=== PATIENT | female | born 1985 | race Caucasian/White ===

== ENCOUNTER 2020-06-27 09:25 | Emergency (ER) | payer MEDICAID ==
[~2020-06-27] VITALS: Ht 160 cm; Wt 150.0 kg
[2020-06-27] MEDS ORDERED: ONDANSETRON HCL 4MG/2ML INJ IV STA (09:44)
[2020-06-27] MEDS ORDERED: ACETAMINOPHEN 325MG TABLET PO STA (09:44)
[2020-06-27] MEDS ORDERED: MORPHINE SULFATE 4 MG/ML CPJ (NOT FOR IM USE) IV STA (09:44)
[2020-06-27 10:22] LABS: HEMATOCRIT. 47.5 % (36.0-48.0); HEMOGLOBIN. 16.2 g/dL (12.0-16.0); MEAN CORPUSCULAR HEMOGLOBIN 31.4 pg (28.0-32.0); MEAN CORPUSCULAR VOLUME 91.8 fL (81.0-99.0); PLATELET 308 x1000/uL (130-400); RED BLOOD CELL COUNT 5.17 mill/uL (4.2-5.4); RED CELL DISTRIBUTION WIDTH 12.5 % (11.6-14.6)
[2020-06-27 10:31] LABS: INR 1.1
[2020-06-27 10:32] LABS: CHLORIDE 99 mEq/L (98-107)
[2020-06-27 10:37] LABS: ETHANOL BLOOD < 10 mg/dL
[2020-06-27 10:44] LABS: HCG SCREEN NEGATIVE
[2020-06-27] MEDS ORDERED: POTASSIUM CHLORIDE 20MEQ TABLET SR PO ONE (11:00)
[2020-06-27 12:41] LABS: CLARITY URINE TURBID (CLEAR); COLOR URINE DARK YELLOW (YELLOW); KETONES URINE TRACE (NEGATIVE); LEUKOCYTE ESTERASE URINE 2+ (NEGATIVE); NITRITE URINE POSITIVE (NEGATIVE); OCCULT BLOOD URINE 3+ (NEGATIVE); PROTEIN URINE 2+ (NEGATIVE); SPECIFIC GRAVITY URINE 1.019 (1.005-1.030)
[2020-06-27 12:52] LABS: *AMPHETAMINES SCREEN URINE NEGATIVE (NEGATIVE); *BARBITURATES SCREEN URINE NEGATIVE (NEGATIVE); *BENZODIAZEPINES SCREEN URINE NEGATIVE (NEGATIVE); *COCAINE SCREEN URINE NEGATIVE (NEGATIVE); METHADONE URINE SCREEN NEGATIVE (NEGATIVE)
[2020-06-27 12:53] LABS: OPIATES URINE SCREEN NEGATIVE (NEGATIVE); PHENCYCLIDINE URINE SCREEN NEGATIVE (NEGATIVE)
[2020-06-27 12:54] LABS: CANNABINOID URINE SCREEN PRESUMTIVE POSITIVE (NEGATIVE)
[2020-06-27 13:37] VITALS: BP 158/88
[2020-06-27 14:12] LABS: PLATELET ESTIMATE NORMAL
== END 2020-06-27 13:39 | disposition home or self-care (01) ==
LOC: ER 09:25
DX: N39.0 Urinary tract infection, site not specified (principal); J45.909 Unspecified asthma, uncomplicated; F19.10 Other psychoactive substance abuse, uncomplicated; F15.10 Other stimulant abuse, uncomplicated; Z98.890 Other specified postprocedural states
CPT/HCPCS: 36415; 71045; 80053; 80305; 80320; 81003; 81025; 82962; 83605; 83880; 84145; 84484; 84703; 85025; 85610; 87040; 87077; 87086; 87186; 93005; 96374; 96375; 99285; J2270; J2405; G0480

== ENCOUNTER 2020-08-29 16:28 | Inpatient (IN) | payer MEDICAID ==
[~2020-08-29] VITALS: Ht 165.1 cm; Wt 144.7 kg
[2020-08-29] MEDS ORDERED: ONDANSETRON HCL 4MG/2ML INJ IV STA (16:54)
[2020-08-29] MEDS ORDERED: MORPHINE SULFATE 4 MG/ML CPJ (NOT FOR IM USE) IV STA (16:54)
[2020-08-29] MEDS ORDERED: SODIUM CHLORIDE 0.9% 1,000 ML IV ONE ×2 (17:00→21:15)
[2020-08-29] MEDS ORDERED: PIPERACILLIN/TAZ 3.375G PREMIX 50 ML IV ONE (17:00)
[2020-08-29] MEDS ORDERED: AZITHROMYCIN 500 MG in DEXT 5% WATER 250 ML IV ONE (17:00)
[2020-08-29 17:26] LABS: HEMATOCRIT. 50.1 % (36.0-48.0); HEMOGLOBIN. 16.8 g/dL (12.0-16.0); MEAN CORPUSCULAR HEMOGLOBIN 30.6 pg (28.0-32.0); MEAN CORPUSCULAR VOLUME 91.4 fL (81.0-99.0); PLATELET 238 x1000/uL (130-400); RED BLOOD CELL COUNT 5.48 mill/uL (4.2-5.4); RED CELL DISTRIBUTION WIDTH 13.9 % (11.6-14.6)
[2020-08-29 17:34] LABS: INR 1.5; PROTHROMBIN TIME 15.1 sec (9.6-11.0)
[2020-08-29 17:47] LABS: HCG SCREEN NEGATIVE
[2020-08-29 17:55] LABS: CHLORIDE 94 mEq/L (98-107)
[2020-08-29 17:59] LABS: ETHANOL BLOOD < 10 mg/dL
[2020-08-29 18:28] LABS: PLATELET ESTIMATE NORMAL
[2020-08-29] MEDS ORDERED: KETOROLAC 30MG/ML VIAL IV SCH (18:45)
[2020-08-29 18:56] LABS: CLARITY URINE TURBID (CLEAR); COLOR URINE DARK YELLOW (YELLOW); KETONES URINE TRACE (NEGATIVE); LEUKOCYTE ESTERASE URINE TRACE (NEGATIVE); NITRITE URINE POSITIVE (NEGATIVE); OCCULT BLOOD URINE TRACE (NEGATIVE); PROTEIN URINE 2+ (NEGATIVE); SPECIFIC GRAVITY URINE 1.029 (1.005-1.030)
[2020-08-29] MEDS ORDERED: VANCOMYCIN 1 G PREMIX 200 ML IV NR (19:00)
[2020-08-29 19:24] LABS: *BARBITURATES SCREEN URINE NEGATIVE (NEGATIVE); *COCAINE SCREEN URINE NEGATIVE (NEGATIVE)
[2020-08-29 19:25] LABS: *BENZODIAZEPINES SCREEN URINE NEGATIVE (NEGATIVE); METHADONE URINE SCREEN NEGATIVE (NEGATIVE); OPIATES URINE SCREEN NEGATIVE (NEGATIVE); PHENCYCLIDINE URINE SCREEN NEGATIVE (NEGATIVE)
[2020-08-29 19:28] LABS: *AMPHETAMINES SCREEN URINE PRESUMTIVE POSITIVE (NEGATIVE); CANNABINOID URINE SCREEN PRESUMTIVE POSITIVE (NEGATIVE)
[2020-08-29] MEDS: AZTREONAM 2 GM in DEXT 5% WATER 100 ML IV SCH (21:52)
[2020-08-29] MEDS ORDERED: NA PHOS,M-B/NA PHOS,DI-BA ENEMA 118ML PR PRN (23:00)
[2020-08-29] MEDS ORDERED: DIPHENHYDRAMINE 50MG/ML VIAL IV PRN (23:00)
[2020-08-29] MEDS ORDERED: LORAZEPAM 2MG/ML CPJ IV PRN (23:00)
[2020-08-29] MEDS ORDERED: HYDRALAZINE 20MG/ML VIAL IV PRN (23:00)
[2020-08-29] MEDS ORDERED: CLONIDINE 0.1MG TABLET PO PRN (23:00)
[2020-08-29] MEDS ORDERED: DOCUSATE SODIUM 100MG CAPSULE PO PRN (23:00)
[2020-08-29] MEDS ORDERED: MAGNESIUM/ALUMINUM HYDROXIDE/SIMETHICONE 30ML UDC PO PRN (23:00)
[2020-08-29] MEDS ORDERED: IPRATROPIUM/ALBUTEROL 0.5-3(2.5)MG/3ML NEB NEB PRN (23:00)
[2020-08-29] MEDS ORDERED: GUAIFENESIN 200MG/10ML SUGAR FREE UDC PO PRN (23:00)
[2020-08-30] MEDS: DEXT 5%/0.45% NACL 1000ML 1,000 ML IV SCH ×2 (02:11→18:14)
[2020-08-30] MEDS: PANTOPRAZOLE SODIUM 40 MG/VIAL IV SCH ×2 (02:11→10:01)
[2020-08-30 04:12] VITALS: BP 101/59
[2020-08-30] MEDS: SODIUM CHLORIDE 0.9% INJ 3ML FLUSH IVF SCH ×3 (05:46→21:31)
[2020-08-30 07:49] LABS: HEMATOCRIT. 46.2 % (36.0-48.0); HEMOGLOBIN. 15.3 g/dL (12.0-16.0); MEAN CORPUSCULAR HEMOGLOBIN 31.1 pg (28.0-32.0); MEAN CORPUSCULAR VOLUME 93.8 fL (81.0-99.0); MEAN PLATELET VOLUME 9.4 fl (7.4-10.4); PLATELET 167 x1000/uL (130-400); RED BLOOD CELL COUNT 4.93 mill/uL (4.2-5.4)
[2020-08-30 07:57] LABS: CHLORIDE 102 mEq/L (98-107)
[2020-08-30 08:06] LABS: CREATINE KINASE MB FRACTION 14.1 ng/mL (0.5-3.6)
[2020-08-30] MEDS: AZTREONAM 2 GM in DEXT 5% WATER 100 ML IV SCH (10:00)
[2020-08-30] MEDS: ENOXAPARIN 40MG/0.4ML SYR SUBCUT SCH (10:01)
[2020-08-30 11:55] LABS: CREATINE KINASE 5614 IU/L (26-192)
[2020-08-30 15:01] LABS: PLATELET ESTIMATE NORMAL
[2020-08-30 16:00] VITALS: BP 114/69
[2020-08-30] MEDS ORDERED: LEVOFLOXACIN 500MG PREMIX 100 ML IV SCH (16:00)
[2020-08-30 17:01] LABS: CREATINE KINASE MB FRACTION 9.6 ng/mL (0.5-3.6)
[2020-08-30 17:26] LABS: CREATINE KINASE 4139 IU/L (26-192)
[2020-08-30] MEDS: METRONIDAZOLE 500 MG PREMIX 100 ML IV SCH ×2 (18:14→21:30)
[2020-08-30 20:00] VITALS: BP 106/46
[2020-08-31] VITALS: BP 96/56
[2020-08-31 04:00] VITALS: BP 107/52
[2020-08-31] MEDS: METRONIDAZOLE 500 MG PREMIX 100 ML IV SCH ×3 (05:50→21:36)
[2020-08-31] MEDS: SODIUM CHLORIDE 0.9% INJ 3ML FLUSH IVF SCH ×3 (05:51→21:36)
[2020-08-31 06:37] LABS: BASOPHILS % 0.3 % (0.0-2.0); EOSINOPHILS % 1.5 % (0.0-5.0); HEMATOCRIT. 39.5 % (36.0-48.0); HEMOGLOBIN. 13.7 g/dL (12.0-16.0); LYMPHOCYTES % 8.5 % (20.0-50.0); MEAN CORPUSCULAR HEMOGLOBIN 31.7 pg (28.0-32.0); MEAN CORPUSCULAR VOLUME 91.5 fL (81.0-99.0); MONOCYTES % 5.4 % (2.0-8.0); NEUTROPHILS % 84.3 % (40.0-76.0); PLATELET 124 x1000/uL (130-400); RED BLOOD CELL COUNT 4.32 mill/uL (4.2-5.4)
[2020-08-31 06:54] LABS: CHLORIDE 104 mEq/L (98-107)
[2020-08-31 08:00] VITALS: BP 108/88
[2020-08-31] MEDS: ENOXAPARIN 40MG/0.4ML SYR SUBCUT SCH (09:00)
[2020-08-31] MEDS: PANTOPRAZOLE SODIUM 40 MG/VIAL IV SCH (09:02)
[2020-08-31] MEDS: DEXT 5%/0.45% NACL 1000ML 1,000 ML IV SCH ×2 (09:05→18:42)
[2020-08-31] MEDS: LEVOFLOXACIN 250MG PREMIX 50 ML IV SCH (14:24)
[2020-08-31] MEDS: KETOROLAC 30MG/ML VIAL IV PRN (14:40)
[2020-08-31 16:00] VITALS: BP 110/65
[2020-08-31] MEDS ORDERED: SIMETHICONE 40 MG/0.6 ML 30ML PO SCH (18:20)
[2020-08-31] MEDS: SIMETHICONE 80MG TABLET CHEW PO SCH ×2 (18:41→21:36)
[2020-08-31 20:00] VITALS: BP 115/32
[2020-08-31] MEDS: ACETAMINOPHEN 325MG TABLET PO PRN (21:36)
[2020-09-01] VITALS: BP 114/63
[2020-09-01 04:00] VITALS: BP 101/64
[2020-09-01] MEDS: DEXT 5%/0.45% NACL 1000ML 1,000 ML IV SCH ×2 (06:00→14:55)
[2020-09-01] MEDS: METRONIDAZOLE 500 MG PREMIX 100 ML IV SCH ×3 (06:00→21:44)
[2020-09-01] MEDS: SODIUM CHLORIDE 0.9% INJ 3ML FLUSH IVF SCH ×3 (06:00→21:55)
[2020-09-01 06:55] LABS: BASOPHILS % 0.2 % (0.0-2.0); EOSINOPHILS % 0.2 % (0.0-5.0); HEMATOCRIT. 38.2 % (36.0-48.0); LYMPHOCYTES % 16.5 % (20.0-50.0); MEAN CORPUSCULAR HEMOGLOBIN 31.9 pg (28.0-32.0); MEAN CORPUSCULAR VOLUME 93.8 fL (81.0-99.0); MEAN PLATELET VOLUME 10.4 fl (7.4-10.4); MONOCYTES % 8.4 % (2.0-8.0); NEUTROPHILS % 74.7 % (40.0-76.0); PLATELET 122 x1000/uL (130-400); RED BLOOD CELL COUNT 4.07 mill/uL (4.2-5.4); RED CELL DISTRIBUTION WIDTH 14.1 % (11.6-14.6)
[2020-09-01 07:18] LABS: CHLORIDE 103 mEq/L (98-107)
[2020-09-01 08:30] VITALS: BP 95/55
[2020-09-01] MEDS: PANTOPRAZOLE SODIUM 40 MG/VIAL IV SCH (08:40)
[2020-09-01] MEDS: ONDANSETRON HCL 4MG/2ML INJ IV PRN ×2 (08:42→18:06)
[2020-09-01] MEDS: KETOROLAC 30MG/ML VIAL IV PRN ×2 (08:42→18:06)
[2020-09-01] MEDS: SIMETHICONE 80MG TABLET CHEW PO SCH ×4 (08:42→21:44)
[2020-09-01] MEDS: ENOXAPARIN 40MG/0.4ML SYR SUBCUT SCH (08:42)
[2020-09-01 12:00] VITALS: BP 104/54
[2020-09-01] MEDS: LEVOFLOXACIN 250MG PREMIX 50 ML IV SCH (13:54)
[2020-09-01 16:00] VITALS: BP 109/67
[2020-09-01] MEDS ORDERED: LOPERAMIDE HCL 2MG CAPSULE PO PRN (17:00)
[2020-09-01] MEDS ORDERED: LOPERAMIDE HCL 2MG CAPSULE PO NR (17:00)
[2020-09-01 20:00] VITALS: BP 99/54
[2020-09-02] VITALS: BP 110/67
[2020-09-02 04:00] VITALS: BP 96/62
[2020-09-02] MEDS: SODIUM CHLORIDE 0.9% INJ 3ML FLUSH IVF SCH ×3 (06:21→21:32)
[2020-09-02] MEDS: DEXT 5%/0.45% NACL 1000ML 1,000 ML IV SCH ×3 (06:21→21:31)
[2020-09-02] MEDS: METRONIDAZOLE 500 MG PREMIX 100 ML IV SCH ×3 (06:21→21:31)
[2020-09-02] MEDS: SIMETHICONE 80MG TABLET CHEW PO SCH ×4 (08:56→21:31)
[2020-09-02] MEDS: ENOXAPARIN 40MG/0.4ML SYR SUBCUT SCH (08:57)
[2020-09-02] MEDS: PANTOPRAZOLE SODIUM 40 MG/VIAL IV SCH (08:57)
[2020-09-02 12:46] VITALS: BP 89/47
[2020-09-02 12:50] VITALS: BP 117/58
[2020-09-02] MEDS ORDERED: LEVOFLOXACIN 500MG PREMIX 100 ML IV SCH (14:00)
[2020-09-02 16:27] VITALS: BP 99/56
[2020-09-02] MEDS: ONDANSETRON HCL 4MG/2ML INJ IV PRN (18:18)
[2020-09-02 20:00] VITALS: BP 126/57
[2020-09-03] VITALS: BP 141/73
[2020-09-03 04:00] VITALS: BP 119/60
[2020-09-03] MEDS: METRONIDAZOLE 500 MG PREMIX 100 ML IV SCH ×3 (06:23→21:04)
[2020-09-03] MEDS: SODIUM CHLORIDE 0.9% INJ 3ML FLUSH IVF SCH ×3 (06:23→21:05)
[2020-09-03 08:16] VITALS: BP 112/49
[2020-09-03] MEDS: PANTOPRAZOLE SODIUM 40 MG/VIAL IV SCH (08:30)
[2020-09-03] MEDS: SIMETHICONE 80MG TABLET CHEW PO SCH ×4 (08:30→21:03)
[2020-09-03] MEDS: ENOXAPARIN 40MG/0.4ML SYR SUBCUT SCH (08:30)
[2020-09-03 12:10] VITALS: BP 94/48
[2020-09-03] MEDS: ACETAMINOPHEN 325MG TABLET PO PRN (12:45)
[2020-09-03] MEDS ORDERED: LEVOFLOXACIN 500MG PREMIX 100 ML IV SCH (14:00)
[2020-09-03] MEDS: ONDANSETRON HCL 4MG/2ML INJ IV PRN ×2 (17:05→21:17)
[2020-09-03] MEDS: DEXT 5%/0.45% NACL 1000ML 1,000 ML IV SCH (17:05)
[2020-09-03 20:00] VITALS: BP 112/60
[2020-09-04] VITALS: BP 116/70
[2020-09-04] MEDS: DEXT 5%/0.45% NACL 1000ML 1,000 ML IV SCH ×3 (03:02→21:12)
[2020-09-04 04:00] VITALS: BP 112/75
[2020-09-04] MEDS: SODIUM CHLORIDE 0.9% INJ 3ML FLUSH IVF SCH ×3 (05:54→22:00)
[2020-09-04] MEDS: METRONIDAZOLE 500 MG PREMIX 100 ML IV SCH (05:54)
[2020-09-04] MEDS: ONDANSETRON HCL 4MG/2ML INJ IV PRN (06:13)
[2020-09-04] MEDS: SIMETHICONE 80MG TABLET CHEW PO SCH ×4 (08:20→21:09)
[2020-09-04] MEDS: ENOXAPARIN 40MG/0.4ML SYR SUBCUT SCH (09:00)
[2020-09-04 09:01] VITALS: BP 111/75
[2020-09-04 09:08] LABS: INR 1.3
[2020-09-04] MEDS: PANTOPRAZOLE SODIUM 40 MG/VIAL IV SCH (09:20)
[2020-09-04 12:00] VITALS: BP 130/75
[2020-09-04] MEDS: ACETAMINOPHEN 325MG TABLET PO PRN (14:01)
[2020-09-04 16:00] VITALS: BP 123/80
[2020-09-04] MEDS: METOCLOPRAMIDE HCL 10MG/2ML VIAL IV SCH (17:23)
[2020-09-04 20:42] VITALS: BP 127/75
[2020-09-05] VITALS: BP 103/68
[2020-09-05 04:00] VITALS: BP 128/63
[2020-09-05] MEDS: METOCLOPRAMIDE HCL 10MG/2ML VIAL IV SCH ×6 (06:01→23:22)
[2020-09-05] MEDS: SODIUM CHLORIDE 0.9% INJ 3ML FLUSH IVF SCH ×3 (06:02→22:23)
[2020-09-05 08:00] VITALS: BP 137/84
[2020-09-05] MEDS: SIMETHICONE 80MG TABLET CHEW PO SCH ×4 (08:00→22:22)
[2020-09-05] MEDS: PANTOPRAZOLE SODIUM 40 MG/VIAL IV SCH (08:01)
[2020-09-05] MEDS: DEXT 5%/0.45% NACL 1000ML 1,000 ML IV SCH ×2 (08:02→17:18)
[2020-09-05] MEDS: ENOXAPARIN 40MG/0.4ML SYR SUBCUT SCH ×2 (08:02→22:23)
[2020-09-05 09:31] LABS: BASOPHILS % 0.3 % (0.0-2.0); EOSINOPHILS % 0.6 % (0.0-5.0); HEMATOCRIT. 40.6 % (36.0-48.0); HEMOGLOBIN. 13.5 g/dL (12.0-16.0); LYMPHOCYTES % 13.6 % (20.0-50.0); MEAN CORPUSCULAR HEMOGLOBIN 30.8 pg (28.0-32.0); MEAN CORPUSCULAR VOLUME 92.7 fL (81.0-99.0); MEAN PLATELET VOLUME 8.3 fl (7.4-10.4); MONOCYTES % 8.7 % (2.0-8.0); NEUTROPHILS % 76.8 % (40.0-76.0); PLATELET 336 x1000/uL (130-400); RED BLOOD CELL COUNT 4.38 mill/uL (4.2-5.4); RED CELL DISTRIBUTION WIDTH 14.3 % (11.6-14.6)
[2020-09-05 10:03] LABS: CHLORIDE 104 mEq/L (98-107)
[2020-09-05 12:00] VITALS: BP 125/72
[2020-09-05] MEDS ORDERED: POTASSIUM CHLORIDE 20MEQ TABLET SR PO NR (12:00)
[2020-09-05 16:00] VITALS: BP 122/85
[2020-09-05 20:00] VITALS: BP 121/68
[2020-09-06] VITALS (7 sets, daily range): BP systolic 112–142; BP diastolic 64–92
[2020-09-06] MEDS: DEXT 5%/0.45% NACL 1000ML 1,000 ML IV SCH ×2 (03:00→15:13)
[2020-09-06] MEDS: SODIUM CHLORIDE 0.9% INJ 3ML FLUSH IVF SCH ×3 (06:06→22:00)
[2020-09-06] MEDS: METOCLOPRAMIDE HCL 10MG/2ML VIAL IV SCH ×3 (06:06→17:06)
[2020-09-06 07:00] LABS: CHLORIDE 103 mEq/L (98-107)
[2020-09-06 07:43] LABS: BASOPHILS % 0.4 % (0.0-2.0); EOSINOPHILS % 0.7 % (0.0-5.0); HEMATOCRIT. 38.5 % (36.0-48.0); HEMOGLOBIN. 13.1 g/dL (12.0-16.0); LYMPHOCYTES % 17.1 % (20.0-50.0); MEAN CORPUSCULAR HEMOGLOBIN 31.7 pg (28.0-32.0); MEAN CORPUSCULAR VOLUME 93.6 fL (81.0-99.0); MEAN PLATELET VOLUME 8.6 fl (7.4-10.4); MONOCYTES % 12.2 % (2.0-8.0); NEUTROPHILS % 69.6 % (40.0-76.0); PLATELET 360 x1000/uL (130-400); RED BLOOD CELL COUNT 4.12 mill/uL (4.2-5.4); RED CELL DISTRIBUTION WIDTH 14.3 % (11.6-14.6)
[2020-09-06] MEDS: SIMETHICONE 80MG TABLET CHEW PO SCH ×4 (08:22→21:00)
[2020-09-06] MEDS: PANTOPRAZOLE SODIUM 40 MG/VIAL IV SCH (08:22)
[2020-09-06] MEDS: ENOXAPARIN 40MG/0.4ML SYR SUBCUT SCH (08:22)
[2020-09-06] MEDS ORDERED: EZ-HD SUSPENSION(BARIUM SULFATE 340GM) PO ONE (10:14)
[2020-09-06] MEDS ORDERED: SIMETHICONE/SOD BICARB/CIT AC 1 EACH GRAN.EF.PK ONE (10:15)
[2020-09-06] MEDS ORDERED: IOHEXOL-300 100 ML BOTTLE ONE (16:41)
[2020-09-06] MEDS: ACETAMINOPHEN 325MG TABLET PO PRN (22:13)
[2020-09-07] VITALS (26 sets, daily range): BP systolic 95–138; BP diastolic 41–77
[2020-09-07] MEDS: DEXT 5%/0.45% NACL 1000ML 1,000 ML IV SCH ×3 (04:00→21:45)
[2020-09-07 07:08] LABS: BASOPHILS % 0.4 % (0.0-2.0); EOSINOPHILS % 0.6 % (0.0-5.0); HEMATOCRIT. 39.7 % (36.0-48.0); HEMOGLOBIN. 13.4 g/dL (12.0-16.0); LYMPHOCYTES % 13.9 % (20.0-50.0); MEAN CORPUSCULAR HEMOGLOBIN 31.6 pg (28.0-32.0); MEAN CORPUSCULAR VOLUME 93.3 fL (81.0-99.0); MEAN PLATELET VOLUME 8.2 fl (7.4-10.4); MONOCYTES % 9.9 % (2.0-8.0); NEUTROPHILS % 75.2 % (40.0-76.0); PLATELET 394 x1000/uL (130-400); RED BLOOD CELL COUNT 4.25 mill/uL (4.2-5.4); RED CELL DISTRIBUTION WIDTH 14.6 % (11.6-14.6)
[2020-09-07 07:46] LABS: CHLORIDE 102 mEq/L (98-107)
[2020-09-07] MEDS ORDERED: SODIUM BICARBONATE 4% (2.4MEQ) 5ML VIAL IV ONE (07:47)
[2020-09-07] MEDS ORDERED: FENTANYL CITRATE/PF 50MCG/ML 2ML VIAL ONE (07:47)
[2020-09-07] MEDS ORDERED: LIDOCAINE HCL 1% 20ML VIAL (Pyxis) INJ ONE (07:47)
[2020-09-07] MEDS: PANTOPRAZOLE SODIUM 40 MG/VIAL IV SCH (11:11)
[2020-09-07] MEDS: SIMETHICONE 80MG TABLET CHEW PO SCH ×4 (11:12→21:45)
[2020-09-07] MEDS ORDERED: POTASSIUM CHLORIDE 20MEQ TABLET SR PO NR (12:00)
[2020-09-07] MEDS ORDERED: POTASSIUM CHLORIDE INJ 40 MEQ in DEXT 5% WATER 250 ML IV NR (14:00)
[2020-09-07] MEDS ORDERED: MEROPENEM 1,000 MG in SODIUM CHLORIDE 0.9% 100 ML IV SCH ×2 (18:00→20:00)
[2020-09-07] MEDS: METRONIDAZOLE 500 MG PREMIX 100 ML IV SCH (21:45)
[2020-09-07] MEDS: AZTREONAM 2GM in DEXTROSE 5% WATER 100ML IV SCH (21:45)
[2020-09-07] MEDS: SODIUM CHLORIDE 0.9% INJ 3ML FLUSH IVF SCH (21:46)
[2020-09-08] VITALS: BP 90/50
[2020-09-08 04:00] VITALS: BP 110/65
[2020-09-08] MEDS: SODIUM CHLORIDE 0.9% INJ 3ML FLUSH IVF SCH ×3 (06:06→21:33)
[2020-09-08] MEDS: METOCLOPRAMIDE HCL 10MG/2ML VIAL IV SCH ×3 (06:06→17:41)
[2020-09-08] MEDS: METRONIDAZOLE 500 MG PREMIX 100 ML IV SCH ×3 (06:06→21:33)
[2020-09-08] MEDS: DEXT 5%/0.45% NACL 1000ML 1,000 ML IV SCH ×2 (06:07→17:42)
[2020-09-08 06:27] LABS: BASOPHILS % 0.5 % (0.0-2.0); EOSINOPHILS % 1.6 % (0.0-5.0); HEMATOCRIT. 38.7 % (36.0-48.0); HEMOGLOBIN. 13.2 g/dL (12.0-16.0); LYMPHOCYTES % 28.3 % (20.0-50.0); MEAN CORPUSCULAR HEMOGLOBIN 31.7 pg (28.0-32.0); MEAN CORPUSCULAR VOLUME 92.9 fL (81.0-99.0); MEAN PLATELET VOLUME 7.9 fl (7.4-10.4); MONOCYTES % 8.6 % (2.0-8.0); PLATELET 431 x1000/uL (130-400); RED BLOOD CELL COUNT 4.16 mill/uL (4.2-5.4); RED CELL DISTRIBUTION WIDTH 14.4 % (11.6-14.6)
[2020-09-08 06:39] LABS: CHLORIDE 105 mEq/L (98-107)
[2020-09-08 08:03] VITALS: BP 95/60
[2020-09-08] MEDS: PANTOPRAZOLE SODIUM 40 MG/VIAL IV SCH (08:07)
[2020-09-08] MEDS: SIMETHICONE 80MG TABLET CHEW PO SCH ×4 (08:07→21:33)
[2020-09-08] MEDS: AZTREONAM 2GM in DEXTROSE 5% WATER 100ML IV SCH ×2 (08:16→20:20)
[2020-09-08] MEDS ORDERED: BARIUM SULFATE 176 GM SUSP.RECON ONE (09:26)
[2020-09-08 11:50] VITALS: BP 114/59
[2020-09-08 15:51] VITALS: BP 111/45
[2020-09-08 20:00] VITALS: BP 133/61
[2020-09-09] VITALS: BP 102/62
[2020-09-09] MEDS: METOCLOPRAMIDE HCL 10MG/2ML VIAL IV SCH ×5 (00:34→23:54)
[2020-09-09] MEDS: DEXT 5%/0.45% NACL 1000ML 1,000 ML IV SCH (03:54)
[2020-09-09 04:00] VITALS: BP 111/68
[2020-09-09] MEDS: METRONIDAZOLE 500 MG PREMIX 100 ML IV SCH ×3 (04:53→21:47)
[2020-09-09] MEDS: SODIUM CHLORIDE 0.9% INJ 3ML FLUSH IVF SCH ×3 (06:21→23:54)
[2020-09-09] MEDS: PANTOPRAZOLE SODIUM 40 MG/VIAL IV SCH (07:55)
[2020-09-09] MEDS: SIMETHICONE 80MG TABLET CHEW PO SCH ×4 (07:55→21:47)
[2020-09-09] MEDS: AZTREONAM 2GM in DEXTROSE 5% WATER 100ML IV SCH ×2 (07:56→20:33)
[2020-09-09 08:00] VITALS: BP 95/62
[2020-09-09 08:07] LABS: BASOPHILS % 0.9 % (0.0-2.0); EOSINOPHILS % 2.2 % (0.0-5.0); HEMATOCRIT. 42.3 % (36.0-48.0); HEMOGLOBIN. 13.8 g/dL (12.0-16.0); LYMPHOCYTES % 33.3 % (20.0-50.0); MEAN CORPUSCULAR HEMOGLOBIN 30.8 pg (28.0-32.0); MEAN CORPUSCULAR VOLUME 94.3 fL (81.0-99.0); MEAN PLATELET VOLUME 8.7 fl (7.4-10.4); MONOCYTES % 9.1 % (2.0-8.0); NEUTROPHILS % 54.5 % (40.0-76.0); PLATELET 315 x1000/uL (130-400); RED BLOOD CELL COUNT 4.49 mill/uL (4.2-5.4); RED CELL DISTRIBUTION WIDTH 14.5 % (11.6-14.6)
[2020-09-09 08:15] LABS: CHLORIDE 108 mEq/L (98-107)
[2020-09-09 12:00] VITALS: BP 95/65
[2020-09-09 16:00] VITALS: BP 99/52
[2020-09-09] MEDS: ACETAMINOPHEN 325MG TABLET PO PRN (16:53)
[2020-09-09 20:00] VITALS: BP 116/63
[2020-09-10] VITALS: BP 125/62
[2020-09-10 04:00] VITALS: BP 112/66
[2020-09-10] MEDS: SODIUM CHLORIDE 0.9% INJ 3ML FLUSH IVF SCH ×3 (05:36→21:10)
[2020-09-10] MEDS: METRONIDAZOLE 500 MG PREMIX 100 ML IV SCH ×3 (05:36→21:10)
[2020-09-10] MEDS: METOCLOPRAMIDE HCL 10MG/2ML VIAL IV SCH ×3 (05:36→18:10)
[2020-09-10 06:19] LABS: CHLORIDE 108 mEq/L (98-107)
[2020-09-10 06:29] LABS: BASOPHILS % 0.9 % (0.0-2.0); EOSINOPHILS % 3.2 % (0.0-5.0); HEMATOCRIT. 39.6 % (36.0-48.0); HEMOGLOBIN. 13.1 g/dL (12.0-16.0); LYMPHOCYTES % 40.5 % (20.0-50.0); MEAN CORPUSCULAR HEMOGLOBIN 30.7 pg (28.0-32.0); MEAN CORPUSCULAR VOLUME 93.1 fL (81.0-99.0); MEAN PLATELET VOLUME 7.9 fl (7.4-10.4); NEUTROPHILS % 46.4 % (40.0-76.0); PLATELET 504 x1000/uL (130-400); RED BLOOD CELL COUNT 4.25 mill/uL (4.2-5.4); RED CELL DISTRIBUTION WIDTH 14.4 % (11.6-14.6)
[2020-09-10] MEDS: PANTOPRAZOLE SODIUM 40 MG/VIAL IV SCH (07:42)
[2020-09-10] MEDS: AZTREONAM 2GM in DEXTROSE 5% WATER 100ML IV SCH ×2 (07:42→20:02)
[2020-09-10] MEDS: SIMETHICONE 80MG TABLET CHEW PO SCH ×4 (07:42→20:03)
[2020-09-10 08:00] VITALS: BP 108/65
[2020-09-10 12:00] VITALS: BP 118/71
[2020-09-10 16:00] VITALS: BP 111/68
[2020-09-10 20:00] VITALS: BP 110/72
[2020-09-11] VITALS: BP_SYST 133; BP_SYST 95; BP_DIAS 48; BP_DIAS 71
[2020-09-11] MEDS: METOCLOPRAMIDE HCL 10MG/2ML VIAL IV SCH ×5 (00:46→23:01)
[2020-09-11 04:00] VITALS: BP 96/60
[2020-09-11] MEDS: METRONIDAZOLE 500 MG PREMIX 100 ML IV SCH ×3 (04:07→21:34)
[2020-09-11] MEDS: SODIUM CHLORIDE 0.9% INJ 3ML FLUSH IVF SCH ×3 (05:52→21:34)
[2020-09-11] MEDS: PANTOPRAZOLE SODIUM 40 MG/VIAL IV SCH (07:47)
[2020-09-11] MEDS: SIMETHICONE 80MG TABLET CHEW PO SCH ×4 (07:47→20:18)
[2020-09-11] MEDS: AZTREONAM 2GM in DEXTROSE 5% WATER 100ML IV SCH ×2 (07:48→20:20)
[2020-09-11 07:56] LABS: CHLORIDE 106 mEq/L (98-107)
[2020-09-11 07:58] LABS: BASOPHILS % 0.9 % (0.0-2.0); EOSINOPHILS % 2.8 % (0.0-5.0); HEMATOCRIT. 39.2 % (36.0-48.0); HEMOGLOBIN. 13.3 g/dL (12.0-16.0); LYMPHOCYTES % 40.1 % (20.0-50.0); MEAN CORPUSCULAR HEMOGLOBIN 31.6 pg (28.0-32.0); MEAN CORPUSCULAR VOLUME 93.5 fL (81.0-99.0); MEAN PLATELET VOLUME 7.8 fl (7.4-10.4); MONOCYTES % 10.2 % (2.0-8.0); PLATELET 464 x1000/uL (130-400); RED BLOOD CELL COUNT 4.19 mill/uL (4.2-5.4); RED CELL DISTRIBUTION WIDTH 14.4 % (11.6-14.6)
[2020-09-11 08:00] VITALS: BP 102/62
[2020-09-11 12:00] VITALS: BP 105/65
[2020-09-11 16:30] VITALS: BP 129/85
[2020-09-11 20:00] VITALS: BP 96/42
[2020-09-12] VITALS (7 sets, daily range): BP systolic 95–117; BP diastolic 42–62
[2020-09-12] MEDS: METRONIDAZOLE 500 MG PREMIX 100 ML IV SCH ×2 (05:29→13:05)
[2020-09-12] MEDS: SODIUM CHLORIDE 0.9% INJ 3ML FLUSH IVF SCH ×3 (05:29→21:18)
[2020-09-12] MEDS: METOCLOPRAMIDE HCL 10MG/2ML VIAL IV SCH ×3 (05:29→18:17)
[2020-09-12] MEDS: PANTOPRAZOLE SODIUM 40 MG/VIAL IV SCH (08:40)
[2020-09-12] MEDS: SIMETHICONE 80MG TABLET CHEW PO SCH ×4 (08:40→21:18)
[2020-09-12] MEDS: AZTREONAM 2GM in DEXTROSE 5% WATER 100ML IV SCH ×2 (08:40→21:17)
[2020-09-12 09:29] LABS: BASOPHILS % 1.2 % (0.0-2.0); EOSINOPHILS % 2.4 % (0.0-5.0); HEMATOCRIT. 45.3 % (36.0-48.0); HEMOGLOBIN. 14.9 g/dL (12.0-16.0); MEAN CORPUSCULAR HEMOGLOBIN 30.8 pg (28.0-32.0); MEAN CORPUSCULAR VOLUME 93.6 fL (81.0-99.0); MEAN PLATELET VOLUME 7.9 fl (7.4-10.4); MONOCYTES % 8.8 % (2.0-8.0); NEUTROPHILS % 46.6 % (40.0-76.0); PLATELET 470 x1000/uL (130-400); RED BLOOD CELL COUNT 4.83 mill/uL (4.2-5.4); RED CELL DISTRIBUTION WIDTH 14.5 % (11.6-14.6)
[2020-09-12 09:38] LABS: CHLORIDE 107 mEq/L (98-107)
[2020-09-12] MEDS: METRONIDAZOLE 500MG TABLET PO SCH (22:26)
[2020-09-13] MEDS: METOCLOPRAMIDE HCL 10MG/2ML VIAL IV SCH ×4 (00:32→17:28)
[2020-09-13] MEDS: SODIUM CHLORIDE 0.9% INJ 3ML FLUSH IVF SCH ×3 (06:26→21:29)
[2020-09-13 08:00] VITALS: BP 110/71
[2020-09-13] MEDS: AZTREONAM 2GM in DEXTROSE 5% WATER 100ML IV SCH ×2 (08:45→21:28)
[2020-09-13] MEDS: SIMETHICONE 80MG TABLET CHEW PO SCH ×4 (08:46→21:28)
[2020-09-13] MEDS: METRONIDAZOLE 500MG TABLET PO SCH ×2 (08:46→21:28)
[2020-09-13 12:00] VITALS: BP 110/62
[2020-09-13] MEDS: PANTOPRAZOLE SODIUM 40 MG/VIAL IV SCH (12:09)
[2020-09-13 16:00] VITALS: BP 98/46
[2020-09-13 20:00] VITALS: BP 95/56
[2020-09-14] VITALS: BP 124/52
[2020-09-14] MEDS: METOCLOPRAMIDE HCL 10MG/2ML VIAL IV SCH ×3 (01:55→12:00)
[2020-09-14 04:00] VITALS: BP 96/50
[2020-09-14] MEDS: SODIUM CHLORIDE 0.9% INJ 3ML FLUSH IVF SCH ×2 (06:36→14:00)
[2020-09-14 08:00] VITALS: BP 138/66
[2020-09-14] MEDS: AZTREONAM 2GM in DEXTROSE 5% WATER 100ML IV SCH (08:00)
[2020-09-14] MEDS: PANTOPRAZOLE SODIUM 40 MG/VIAL IV SCH (09:00)
[2020-09-14] MEDS: METRONIDAZOLE 500MG TABLET PO SCH (09:19)
[2020-09-14] MEDS: SIMETHICONE 80MG TABLET CHEW PO SCH ×2 (09:20→13:50)
[2020-09-14] MEDS ORDERED: LIDOCAINE HCL 1% 20ML VIAL (Pyxis) INJ ONE (09:59)
[2020-09-14] MEDS ORDERED: SODIUM BICARBONATE 4% (2.4MEQ) 5ML VIAL IV ONE (09:59)
[2020-09-14 12:00] VITALS: BP 123/74
[2020-09-14 15:33] VITALS: BP 123/74
== END 2020-09-14 17:01 | disposition home health service (06) | DRG 951 ==
LOC: ER 16:28 → 5WST 21:14 → EDBEDREQSVC 21:27 → EDBEDREQTM 21:27 → EDBEDREQ 21:27 → ENRESERV 08-30 01:53 → 7WST 08-30 05:25 → 6WST 08-31 02:39
PROVIDERS: ADMIT Internal Medicine; ATTEND Internal Medicine
PROC: 0T913ZX Drainage of Left Kidney, Percutaneous Approach, Diagnostic (ICD-10-PCS; principal; 2020-09-07)
PROC: BT221ZZ Computerized Tomography (CT Scan) of Left Kidney using Low Osmolar Contrast (ICD-10-PCS; 2020-09-07)
PROC: 0TP530Z Removal of Drainage Device from Kidney, Percutaneous Approach (ICD-10-PCS; 2020-09-14)
DX: K80.01 Calculus of gallbladder with acute cholecystitis with obstruction (principal); R65.11 Systemic inflammatory response syndrome (SIRS) of non-infectious origin with acute organ dysfunction; N17.0 Acute kidney failure with tubular necrosis; D68.9 Coagulation defect, unspecified; E66.01 Morbid (severe) obesity due to excess calories; E86.0 Dehydration; E87.6 Hypokalemia; K76.0 Fatty (change of) liver, not elsewhere classified; K82.8 Other specified diseases of gallbladder; N39.0 Urinary tract infection, site not specified; M62.82 Rhabdomyolysis; Z68.43 Body mass index [BMI] 50.0-59.9, adult; F17.210 Nicotine dependence, cigarettes, uncomplicated; E46 Unspecified protein-calorie malnutrition; N28.1 Cyst of kidney, acquired; Z20.822 Contact with and (suspected) exposure to COVID-19; G61.0 Guillain-Barre syndrome; N15.1 Renal and perinephric abscess; F31.9 Bipolar disorder, unspecified; J45.909 Unspecified asthma, uncomplicated; F15.10 Other stimulant abuse, uncomplicated; E87.2 Acidosis; K22.8 Other specified diseases of esophagus; R16.0 Hepatomegaly, not elsewhere classified; Z82.5 Family history of asthma and other chronic lower respiratory diseases; Z83.3 Family history of diabetes mellitus; Z88.0 Allergy status to penicillin; Z71.51 Drug abuse counseling and surveillance of drug abuser; R74.01 Elevation of levels of liver transaminase levels
CPT/HCPCS: 36415; 47537; 49180; 71045; 74176; 74177; 74220; 74230; 76705; 76770; 77012; 78227; 80048; 80053; 80076; 80305; 80320; 81003; 82248; 82378; 82550; 82553; 83605; 83880; 84145; 84484; 84703; 85025; 86850; 86900; 87075; 92610; 92611; 93005; 99152; 99153; 99291; A9537; C1729; C1769; C1893; C9113; J0456; J1650; J1885; J1956; J2185; J2405; J2765; J3010; J3370; J3480; J3490; J7030; J7040; J7050; J7060; J7517; L8514; Q9967; U0003; G0480; G0500

== ENCOUNTER 2022-08-06 12:44 | Emergency (ER) | payer MEDICAID ==
[~2022-08-06] VITALS: Ht 160 cm; Wt 122.0 kg
[2022-08-06 13:39] VITALS: BP 154/82
[2022-08-06] MEDS ORDERED: ERYT1OIN6 EACHEYE (14:36)
== END 2022-08-06 14:58 | disposition home or self-care (01) ==
LOC: ER 12:44
DX: H53.142 Visual discomfort, left eye (principal); F15.10 Other stimulant abuse, uncomplicated; J45.909 Unspecified asthma, uncomplicated; Z88.0 Allergy status to penicillin; Z98.890 Other specified postprocedural states
CPT/HCPCS: 99283

== ENCOUNTER 2022-08-13 12:29 | Emergency (ER) | payer MEDICAID ==
[~2022-08-13] VITALS: Ht 167.6 cm; Wt 109.0 kg
[~2022-08-13 12:29] MED LIST: ERYT1OIN6 EACHEYE
[2022-08-13 12:43] VITALS: BP 143/98
[2022-08-13] MEDS ORDERED: FLUORESCEIN SODIUM 1MG/STRIP EACHEYE ONE (13:45)
[2022-08-13] MEDS ORDERED: TETRACAINE 0.5% OPHTH DROPS 4ML EACHEYE ONE (13:45)
[2022-08-13] MEDS ORDERED: CIPR5DRO EACHEYE (14:27)
[2022-08-13] MEDS ORDERED: PRED5DRO22 EACHEYE (14:29)
== END 2022-08-13 14:51 | disposition home or self-care (01) ==
LOC: ER 12:29
DX: H57.13 Ocular pain, bilateral (principal); J45.909 Unspecified asthma, uncomplicated; F15.10 Other stimulant abuse, uncomplicated; Z88.0 Allergy status to penicillin; Z79.899 Other long term (current) drug therapy
CPT/HCPCS: 81025; 99283

== ENCOUNTER 2024-02-23 14:41 | Emergency (ER) | payer MEDICAID ==
[~2024-02-23] VITALS: Ht 177.8 cm; Wt 100.0 kg
[~2024-02-23 14:41] MED LIST changes: +CIPR5DRO EACHEYE; +PRED5DRO22 EACHEYE
[2024-02-23 14:53] VITALS: O2SAT 99
[2024-02-23] MEDS ORDERED: KETOROLAC 15MG/ML VIAL IM ONE (15:30)
[2024-02-23] MEDS ORDERED: KETOROLAC 15MG/ML VIAL IM NR (17:45)
[2024-02-23] MEDS ORDERED: GABA-529 MT (17:51)
[2024-02-23 17:57] VITALS: BP 133/80; PULSE 72; RESP 20; TEMP 98.1
== END 2024-02-23 17:58 | disposition home or self-care (01) ==
LOC: ER 14:41
DX: G62.9 Polyneuropathy, unspecified (principal); J45.909 Unspecified asthma, uncomplicated; F15.10 Other stimulant abuse, uncomplicated; Z98.890 Other specified postprocedural states; Z88.0 Allergy status to penicillin; Z79.899 Other long term (current) drug therapy
CPT/HCPCS: 99283

== ENCOUNTER 2024-04-23 12:26 | Emergency (ER) | payer MEDICAID ==
[~2024-04-23] VITALS: Ht 170.2 cm; Wt 121.0 kg
[~2024-04-23 12:26] MED LIST changes: +GABA-529 MT
[2024-04-23 12:40] VITALS: O2SAT 99
[2024-04-23 16:24] LABS: BASOPHILS % 0.5 % (0.0-2.0); EOSINOPHILS % 7.7 % (0.0-5.0); HEMATOCRIT. 42.7 % (36.0-48.0); HEMOGLOBIN. 14.2 g/dL (12.0-16.0); LYMPHOCYTES % 26.9 % (20.0-50.0); MEAN CORPUSCULAR HEMOGLOBIN 31.5 pg (28.0-32.0); MEAN CORPUSCULAR HGB CONC 33.2 g/dL (31.0-37.0); MEAN CORPUSCULAR VOLUME 94.7 fL (81.0-99.0); MEAN PLATELET VOLUME 7.7 fl (7.4-10.4); MONOCYTES % 6.8 % (2.0-8.0); NEUTROPHILS % 58.1 % (40.0-76.0); PLATELET 272 x1000/uL (130-400); RED BLOOD CELL COUNT 4.51 mill/uL (4.2-5.4); RED CELL DISTRIBUTION WIDTH 13.2 % (11.6-14.6); WHITE BLOOD COUNT 6.6 x1000/uL (4.5-11.0)
[2024-04-23 16:29] LABS: CHLORIDE 106 mEq/L (98-107); POTASSIUM 4.4 mEq/L (3.5-5.1); SODIUM 138 mEq/L (136-145)
[2024-04-23 16:30] LABS: CALCIUM 9.4 mg/dL (8.7-10.4); CARBON DIOXIDE 29 mEq/L (21-32)
[2024-04-23 16:35] LABS: CREATININE 0.6 mg/dL (0.6-1.0); GLUCOSE 107 mg/dL (70-105); UREA NITROGEN BLOOD 11 mg/dL (9-23)
[2024-04-23 16:38] LABS: INR 0.9; PROTHROMBIN TIME 10.4 sec (9.6-11.0)
[2024-04-23 16:45] LABS: HCG SCREEN NEGATIVE
[2024-04-23] MEDS ORDERED: IOHEXOL-350 100 ML BOTTLE ONE (19:00)
[2024-04-23] MEDS: IBUPROFEN 400MG TABLET PO ONE (19:28)
[2024-04-23] MEDS ORDERED: ONDA-239 PO (19:33)
[2024-04-23 20:20] VITALS: BP 138/76; PULSE 74; RESP 16; TEMP 36.89184; O2SAT 98
== END 2024-04-23 20:21 | disposition home or self-care (01) ==
LOC: ER 12:26
DX: L04.9 Acute lymphadenitis, unspecified (principal); R22.1 Localized swelling, mass and lump, neck; J45.909 Unspecified asthma, uncomplicated; F15.90 Other stimulant use, unspecified, uncomplicated; Z98.890 Other specified postprocedural states; Z79.899 Other long term (current) drug therapy; Z88.0 Allergy status to penicillin
CPT/HCPCS: 99285; 70491; 80048; 84703; 85025; 85610; 36415; Q9967; 99284

== ENCOUNTER 2024-08-07 12:41 | Emergency (ER) | payer MEDICAID ==
[~2024-08-07] VITALS: Ht 160 cm; Wt 101.0 kg
[~2024-08-07 12:41] MED LIST changes: +ONDA-239 PO
[2024-08-07 12:53] VITALS: O2SAT 100
[2024-08-07 13:53] VITALS: BP 146/89; PULSE 72; RESP 18; TEMP 98.3; O2SAT 100
[2024-08-07 17:04] LABS: BASOPHILS % 0.5 % (0.0-2.0); EOSINOPHILS % 4.3 % (0.0-5.0); HEMATOCRIT. 45.9 % (36.0-48.0); HEMOGLOBIN. 15.2 g/dL (12.0-16.0); MEAN CORPUSCULAR HGB CONC 33.1 g/dL (31.0-37.0); MEAN CORPUSCULAR VOLUME 96.7 fL (81.0-99.0); MEAN PLATELET VOLUME 8.3 fl (7.4-10.4); MONOCYTES % 5.2 % (2.0-8.0); PLATELET 250 x1000/uL (130-400); RED BLOOD CELL COUNT 4.74 mill/uL (4.2-5.4); RED CELL DISTRIBUTION WIDTH 13.2 % (11.6-14.6); WHITE BLOOD COUNT 6.9 x1000/uL (4.5-11.0)
[2024-08-07 17:13] LABS: CARBON DIOXIDE 25 mEq/L (21-32); CHLORIDE 107 mEq/L (98-107); POTASSIUM 4.3 mEq/L (3.5-5.1); SODIUM 140 mEq/L (136-145)
[2024-08-07 17:14] LABS: CALCIUM 9.6 mg/dL (8.7-10.4)
[2024-08-07 17:19] LABS: CREATININE 0.6 mg/dL (0.6-1.0); GLUCOSE 96 mg/dL (70-105); UREA NITROGEN BLOOD 8 mg/dL (9-23)
[2024-08-08] MEDS: KETOROLAC 30MG/ML VIAL IM ONE (00:55)
[2024-08-08] MEDS ORDERED: NAPR-1486 MT (01:13)
== END 2024-08-08 02:00 | disposition home or self-care (01) ==
LOC: ER 14:51
DX: M25.561 Pain in right knee (principal); R07.9 Chest pain, unspecified; R20.2 Paresthesia of skin; J45.909 Unspecified asthma, uncomplicated; Z79.1 Long term (current) use of non-steroidal anti-inflammatories (NSAID); Z83.3 Family history of diabetes mellitus; Z88.0 Allergy status to penicillin
CPT/HCPCS: 99285; 93971; 71045; 80048; 85025; 36415; 73562; 96372; J1885

== ENCOUNTER 2024-09-27 10:43 | Emergency (ER) | payer MEDICAID ==
[~2024-09-27] VITALS: Ht 160 cm; Wt 108.9 kg
[~2024-09-27 10:43] MED LIST changes: +NAPR-1486 MT
[2024-09-27 10:49] VITALS: TEMP 37.2; O2SAT 100
[2024-09-27 10:50] VITALS: O2SAT 100
[2024-09-27 14:33] VITALS: PULSE 85
[2024-09-27] MEDS: KETOROLAC 30MG/ML VIAL IM ONE (14:33)
[2024-09-27] MEDS: HYDROCODONE/ACETAMINOPHEN 5/325MG TABLET PO ONE (14:33)
[2024-09-27 14:34] VITALS: BP 134/70; RESP 16
[2024-09-27] MEDS: ONDANSETRON 4MG ODT PO ONE (14:34)
[2024-09-27] MEDS: LIDOCAINE 5% PATCH TOP SCH (14:34)
[2024-09-27 14:49] LABS: BASOPHILS % 1.1 % (0.0-2.0); EOSINOPHILS % 4.7 % (0.0-5.0); HEMOGLOBIN. 14.2 g/dL (12.0-16.0); LYMPHOCYTES % 31.9 % (20.0-50.0); MEAN CORPUSCULAR HEMOGLOBIN 31.5 pg (28.0-32.0); MEAN CORPUSCULAR VOLUME 95.6 fL (81.0-99.0); MEAN PLATELET VOLUME 7.9 fl (7.4-10.4); MONOCYTES % 7.3 % (2.0-8.0); PLATELET 304 x1000/uL (130-400); RED CELL DISTRIBUTION WIDTH 12.8 % (11.6-14.6); WHITE BLOOD COUNT 6.3 x1000/uL (4.5-11.0)
[2024-09-27 14:58] LABS: CHLORIDE 100 mEq/L (98-107); POTASSIUM 4.6 mEq/L (3.5-5.1); SODIUM 141 mEq/L (136-145)
[2024-09-27 14:59] LABS: CALCIUM 9.9 mg/dL (8.7-10.4); CARBON DIOXIDE 29 mEq/L (21-32)
[2024-09-27 15:01] LABS: HCG SCREEN NEGATIVE
[2024-09-27 15:04] LABS: CREATININE 0.6 mg/dL (0.6-1.0); GLUCOSE 96 mg/dL (70-105); UREA NITROGEN BLOOD 8 mg/dL (9-23)
[2024-09-27 15:06] LABS: ALANINE AMINOTRANSFERASE 15 IU/L (10-49); ALBUMIN 4.2 g/dL (3.2-4.8); ASPARTATE AMINOTRANSFERASE 17 IU/L (<34); BILIRUBIN TOTAL 1.1 mg/dL (0.1-1.0); PROTEIN TOTAL 7.6 g/dL (6.0-8.3)
[2024-09-27 15:12] LABS: TROPONIN I HIGH SENSITIVITY < 4 ng/L (3.0-34)
[2024-09-27] MEDS ORDERED: HYDR-4001 MT (15:57)
[2024-09-27] MEDS ORDERED: IBUP-2029 MT (15:57)
== END 2024-09-27 16:20 | disposition home or self-care (01) ==
LOC: ER 10:43
DX: H92.01 Otalgia, right ear (principal); R07.0 Pain in throat; J45.909 Unspecified asthma, uncomplicated; Z88.0 Allergy status to penicillin
CPT/HCPCS: 99285; 71045; 80053; 81025; 84703; 83880; 85025; 84484; 36415; 93005; 96372; J1885; Q0162

== ENCOUNTER 2024-12-05 12:37 | Emergency (ER) | payer MEDICAID ==
[~2024-12-05] VITALS: Ht 172.7 cm; Wt 101.0 kg
[~2024-12-05 12:37] MED LIST changes: +HYDR-4001 MT; +IBUP-2029 MT
[2024-12-05 12:47] VITALS: O2SAT 99
[2024-12-05] MEDS: ACETAMINOPHEN 325MG TABLET PO ONE (14:20)
[2024-12-05] MEDS: SODIUM CHLORIDE 0.9% 1,000 ML IV ONE (14:22)
[2024-12-05] MEDS: ONDANSETRON HCL 4MG/2ML INJ IV STA (14:22)
[2024-12-05] MEDS: MAGNESIUM/ALUMINUM HYDROXIDE/SIMETHICONE 30ML UDC PO ONE (14:22)
[2024-12-05] MEDS: FAMOTIDINE 20MG/2ML VIAL IV ONE (14:22)
[2024-12-05 14:33] LABS: BASOPHILS % 1.3 % (0.0-2.0); EOSINOPHILS % 6.5 % (0.0-5.0); HEMATOCRIT. 42.4 % (36.0-48.0); HEMOGLOBIN. 14.3 g/dL (12.0-16.0); LYMPHOCYTES % 36.4 % (20.0-50.0); MEAN CORPUSCULAR HEMOGLOBIN 31.2 pg (28.0-32.0); MEAN CORPUSCULAR HGB CONC 33.8 g/dL (31.0-37.0); MEAN CORPUSCULAR VOLUME 92.3 fL (81.0-99.0); MONOCYTES % 6.5 % (2.0-8.0); NEUTROPHILS % 49.3 % (40.0-76.0); PLATELET 267 x1000/uL (130-400); RED CELL DISTRIBUTION WIDTH 12.6 % (11.6-14.6); WHITE BLOOD COUNT 4.7 x1000/uL (4.5-11.0)
[2024-12-05 14:41] LABS: CHLORIDE 105 mEq/L (98-107); POTASSIUM 4.5 mEq/L (3.5-5.1); SODIUM 141 mEq/L (136-145)
[2024-12-05 14:42] LABS: CALCIUM 9.5 mg/dL (8.7-10.4); CARBON DIOXIDE 28 mEq/L (21-32)
[2024-12-05 14:43] LABS: PROTHROMBIN TIME 10.8 sec (9.6-11.0)
[2024-12-05 14:46] LABS: HCG SCREEN NEGATIVE
[2024-12-05 14:47] LABS: CREATININE 0.6 mg/dL (0.6-1.0); GLUCOSE 98 mg/dL (70-105); UREA NITROGEN BLOOD 10 mg/dL (9-23)
[2024-12-05 14:49] LABS: ALANINE AMINOTRANSFERASE 12 IU/L (10-49); ALBUMIN 4.5 g/dL (3.2-4.8); ASPARTATE AMINOTRANSFERASE 15 IU/L (<34); BILIRUBIN DIRECT 0.3 mg/dL (<=3.0); BILIRUBIN TOTAL 0.8 mg/dL (0.1-1.0); PROTEIN TOTAL 7.6 g/dL (6.0-8.3)
[2024-12-05 14:50] LABS: TROPONIN I HIGH SENSITIVITY < 4 ng/L (3.0-34)
[2024-12-05 15:26] LABS: CLARITY URINE CLEAR (CLEAR); COLOR URINE DARK YELLOW (YELLOW); GLUCOSE URINE NEGATIVE (NEGATIVE); KETONES URINE NEGATIVE (NEGATIVE); LEUKOCYTE ESTERASE URINE 2+ (NEGATIVE); NITRITE URINE POSITIVE (NEGATIVE); OCCULT BLOOD URINE NEGATIVE (NEGATIVE); PH URINE 5.5 (4.5-8.0); PROTEIN URINE NEGATIVE (NEGATIVE); SPECIFIC GRAVITY URINE 1.024 (1.005-1.030); UROBILINOGEN URINE 0.2 E.U./dL (0.2-1.0)
[2024-12-05] MEDS ORDERED: LEVO-65 MT (15:43)
[2024-12-05] MEDS: LEVOFLOXACIN 500MG TABLET PO ONE (16:16)
[2024-12-05] MEDS: KETOROLAC 30MG/ML VIAL IM ONE (16:16)
[2024-12-05 16:29] VITALS: BP 129/82; PULSE 64; RESP 18; TEMP 36.7; O2SAT 98
[2024-12-05 16:31] LABS: BACTERIA URINE 2+; RBC URINE NONE SEEN /hpf (0-2); SQUAMOUS EPITHELIAL CELL URINE FEW /lpf (RARE/1+)
== END 2024-12-05 16:30 | disposition home or self-care (01) ==
LOC: ER 12:37
DX: N39.0 Urinary tract infection, site not specified (principal); J45.909 Unspecified asthma, uncomplicated; K21.9 Gastro-esophageal reflux disease without esophagitis; Z79.1 Long term (current) use of non-steroidal anti-inflammatories (NSAID); Z88.0 Allergy status to penicillin
CPT/HCPCS: 80076; 80048; 81003; 84703; 83690; 85025; 85610; 87086; 84484; 36415; 71045; 93005; 96361; 96372; 96374; 96375; 99285; J3490; J1885; J2405; J7030; Z7610 ×4